=== PATIENT | male | born 1990 | race Caucasian/White ===

== ENCOUNTER 2018-09-26 10:22 | Emergency (ER) | payer OTHER ==
[~2018-09-26] VITALS: Ht 175.3 cm; Wt 83.9 kg
[2018-09-26 10:30] VITALS: Ht 175.3 cm; Wt 83.9 kg
[2018-09-26 11:25] LABS: AMPHETAMINE QUAL UR NONE DETECTED (See below)
[2018-09-26 11:53] VITALS: BP 123/85
== END 2018-09-26 11:53 | disposition home or self-care (01) ==
LOC: ED 10:22
PROVIDERS: Emergency Medicine
DX: Z02.89 Encounter for other administrative examinations (principal)

== ENCOUNTER 2018-10-16 05:58 | Emergency (ER) | payer OTHER ==
[~2018-10-16] VITALS: Ht 175.3 cm; Wt 85.3 kg
[2018-10-16 06:09] VITALS: BP 127/72; Ht 175.3 cm; Wt 85.3 kg
[2018-10-16 08:01] LABS: AMPHETAMINE QUAL UR NONE DETECTED (See below)
== END 2018-10-16 06:52 | disposition home or self-care (01) ==
LOC: ED 05:58
PROVIDERS: Emergency Medicine
DX: Z13.89 Encounter for screening for other disorder (principal); Z90.89 Acquired absence of other organs

== ENCOUNTER 2018-10-20 14:50 | Emergency (ER) | payer OTHER ==
[~2018-10-20] VITALS: Ht 175.3 cm; Wt 86.2 kg
[2018-10-20 15:17] VITALS: Ht 175.3 cm; Wt 86.2 kg
[2018-10-20 15:49] LABS: AMPHETAMINE QUAL UR NONE DETECTED (See below)
[2018-10-20 17:28] VITALS: BP 132/69
== END 2018-10-20 17:29 | disposition home or self-care (01) ==
LOC: ED 14:50
DX: Z02.89 Encounter for other administrative examinations (principal); F17.210 Nicotine dependence, cigarettes, uncomplicated; Z90.89 Acquired absence of other organs

== ENCOUNTER 2019-02-22 20:26 | Emergency (ER) | payer OTHER ==
[~2019-02-22] VITALS: Ht 175.3 cm; Wt 87.1 kg
[2019-02-22 21:06] VITALS: Ht 175.3 cm; Wt 87.1 kg
[2019-02-22 21:34] LABS: AMPHETAMINE QUAL UR NONE DETECTED (See below)
[2019-02-22 23:12] VITALS: BP 144/79
== END 2019-02-22 21:06 | disposition home or self-care (01) ==
LOC: ED 20:26
DX: Z13.89 Encounter for screening for other disorder (principal)

== ENCOUNTER 2019-04-26 20:41 | Emergency (ER) | payer OTHER ==
[~2019-04-26] VITALS: Ht 175.3 cm; Wt 85.7 kg
[2019-04-26 21:48] VITALS: Ht 175.3 cm; Wt 85.7 kg
[2019-04-26 23:09] LABS: AMPHETAMINE QUAL UR NONE DETECTED (See below)
[2019-04-26 23:17] VITALS: BP 139/77
== END 2019-04-26 23:17 | disposition home or self-care (01) ==
LOC: ED 20:41
PROVIDERS: Emergency Medicine
DX: Z00.00 Encounter for general adult medical examination without abnormal findings (principal); R03.0 Elevated blood-pressure reading, without diagnosis of hypertension; Z90.89 Acquired absence of other organs

== ENCOUNTER 2020-08-16 14:48 | Emergency (ER) | payer OTHER ==
[~2020-08-16] VITALS: Ht 175.3 cm; Wt 91.2 kg
[2020-08-16 14:57] VITALS: Ht 175.3 cm; Wt 91.2 kg
[2020-08-16 15:50] VITALS: BP 131/63
== END 2020-08-16 15:50 | disposition home or self-care (01) ==
LOC: ED 14:48
DX: L03.115 Cellulitis of right lower limb (principal); Z90.89 Acquired absence of other organs